=== PATIENT | female | born 1930 | race African-American/Black ===

== ENCOUNTER → 2017-02-09 | Outpatient (CLI) | payer MEDICARE, BC ==
--- NOTE | ~2017-02-09 | US37 ---
[facility] RADIOLOGY TEXT RESULTS PATIENT: SILVESTRE JIMENEZ LOCATION: [facility] : [birth year] UNIT #: [id number] AGE: [address]: CLINT JACK SEX: F ORDER DR: [id number] [facility] [address] [place], [place] [address] [id number] O MR#: [id number] Acc #: [id number] NAME: SILVESTRE JIMENEZ : 1930 SEX: F STUDY DATE/TIME: 02/09/2017 15:43 UNIT: [facility] ROOM: STUDY DESCRIPTION: US Carotid W/Doppler Bilateral Attending Physician: Clint Jack Referring Physician: Clint Jack Ordering Physician: Physician Non-Staff Primary Care Physician: Generic Doctor Not In System MEDICAL IMAGING REPORT This report is preliminary unless electronic signature is present EXAM Carotid ultrasound HISTORY Dizzy and visual disturbance for 2 weeks. Weakness. Headache. FINDINGS Ultrasound examination of the carotid arteries was performed with amos-scale, color Doppler and spectral Doppler evaluation. Mild to moderate calcified plaque in the carotid bulbs bilaterally, and in the proximal left internal carotid artery and in the proximal right external carotid artery. Peak systolic velocities in the internal carotid arteries are 66 cm/sec on the right and 83 cm/sec on the left, with no evidence of hemodynamically significant carotid artery stenosis. Poor visualization of the mid right internal carotid artery secondary to tortuous vessel course. The external carotid arteries are patent bilaterally. There is antegrade flow in both vertebral arteries. IMPRESSION 1. No evidence of hemodynamically significant carotid artery stenosis by NASCET criteria. 2. Segmental non-visualization of the mid right internal carotid artery secondary to tortuous course. 3. Qbey-yz-xlcogciw partly calcified atherosclerotic plaque in the carotid arteries bilaterally as described. 4. Antegrade flow in both vertebral arteries. Dictated by... Riley Woo M.D. [facility] RADIOLOGY TEXT RESULTS PATIENT: SILVESTRE JIMENEZ LOCATION: [facility] : [birth year] UNIT #: [id number] AGE: [address]: CLINT JACK SEX: F ORDER DR: THIS IS AN ELECTRONICALLY VERIFIED REPORT Riley Woo M.D. at 02/10/2017 10:03 PM Karine TD: 02/10/2017 10:28 JOB #: [id number] MEDICAL IMAGING REPORT Page 1 of 1 COPY
== END | disposition home or self-care (01) ==
LOC: CECH 14:30
DX: H34.232 Retinal artery branch occlusion, left eye (principal); H35.049 Retinal micro-aneurysms, unspecified, unspecified eye; E11.39 Type 2 diabetes mellitus with other diabetic ophthalmic complication; H40.1332 Pigmentary glaucoma, bilateral, moderate stage; I65.23 Occlusion and stenosis of bilateral carotid arteries; Z96.1 Presence of intraocular lens
CPT/HCPCS: 93880